=== PATIENT | male | born 1985 | race African-American/Black ===

== ENCOUNTER 2022-03-17 15:37 | Outpatient (REF) | payer OTHER, SELFPAY ==
--- NOTE | ~2022-03-17 | XR_ITS ---
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 The remainder the paranasal sinuses appear well aerated and clear. There is evidence of old trauma to left side of the face and plates and screws in the floor and lateral wall and roof of the left maxillary sinus. There is also evidence of previous surgery to the mandible with plates and screws. 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 No evidence of sinusitis. Postsurgical changes to the left maxillary sinus and bilateral mandible.
== END 2022-03-17 15:38 | disposition home or self-care (01) ==
LOC: HO.XRAY 15:37
PROVIDERS: Visit Provider Otolaryngology
DX: J32.9 Chronic sinusitis, unspecified (principal)
CPT/HCPCS: 70210